=== PATIENT | male | born 1980 | race American Indian/Alaskan Native ===

== ENCOUNTER → 2022-02-15 | Emergency (ER) | payer MEDICAID, OTHER ==
[~2022-02-15] VITALS: Ht 157.5 cm; Wt 70.0 kg
[2022-02-15 07:23] VITALS: BP 135/80
[2022-02-15 08:00] LABS: Basophils # (auto) 0 10 ^3/uL (0-0.2); Basophils % (auto) 0.5 % (0.0-2.0); Eosinophils # (auto) 0 10 ^3/uL (0-0.8); Eosinophils % (auto) 0.1 % (0.0-7.0); Hematocrit 40.9 % (41.0-53.0); Hemoglobin 13.6 g/dL (13.5-17.5); Lymphocytes # (auto) 1.8 10 ^3/uL (0.4-5.4); Lymphocytes % (auto) 18.8 % (10.0-50.0); Mean Corpuscular Hemoglobin 23.8 pg (28.0-32.0); Mean Corpuscular Hgb Conc. 33.3 g/dL (32.0-36.0); Mean Corpuscular Volume 71.5 fL (80.0-100.0); Monocytes # (auto) 0.8 10 ^3/uL (0-1.3); Monocytes % (auto) 8.6 % (0.0-12.0); Neutrophils # (auto) 6.8 10 ^3/uL (1.6-8.6); Nucleated Red Blood Cells % 0.1 %; Red Blood Cells 5.72 10^6/uL (4.5-5.90); Red Cell Distribution Width 15.8 % (11.8-14.3); White Blood Cell 9.4 10^3/uL (4.4-10.8)
[2022-02-15 08:12] LABS: Albumin 4.3 g/dL (3.4-5.0); Calcium 8.6 mg/dL (8.5-10.1)
[2022-02-15 08:15] LABS: BUN/Creatinine Ratio 6.5; Bilirubin, Total 2.2 mg/dL (0.2-1.0); Total Protein 7.5 g/dL (6.4-8.2)
== END | disposition left against medical advice (07) ==
LOC: ER 07:04 → EDBD 07:04
DX: R07.9 Chest pain, unspecified (principal); Z53.21 Procedure and treatment not carried out due to patient leaving prior to being seen by health care provider
CPT/HCPCS: 36415; 80053; 84484; 85025

== ENCOUNTER 2022-10-21 08:16 | Day surgery (SDC) | payer MEDICAID ==
[2022-10-17 12:05] LABS: Eosinophils # (auto) 0.1 10 ^3/uL (0-0.8); Lymphocytes # (auto) 2.4 10 ^3/uL (0.4-5.4); Lymphocytes % (auto) 26.4 % (10.0-50.0); Monocytes # (auto) 1.3 10 ^3/uL (0-1.3); Nucleated Red Blood Cells % 0.2 %
[2022-10-17 12:06] LABS: Basophils # (auto) 0.1 10 ^3/uL (0-0.2); Basophils % (auto) 0.7 % (0.0-2.0); Hematocrit 44.2 % (41.0-53.0); Hemoglobin 14.7 g/dL (13.5-17.5); Mean Corpuscular Hgb Conc. 33.2 g/dL (32.0-36.0); Mean Corpuscular Volume 75.3 fL (80.0-100.0); Monocytes % (auto) 14.7 % (0.0-12.0); Neutrophils # (auto) 5.3 10 ^3/uL (1.6-8.6); Neutrophils % (auto) 57.2 % (37.0-80.0); Red Blood Cells 5.87 10^6/uL (4.5-5.90); White Blood Cell 9.2 10^3/uL (4.4-10.8)
[2022-10-17 12:24] LABS: INR 0.97 (0.9-1.15); Partial Thromboplastin Time 30.8 SEC (24.5-34.5)
[2022-10-17 12:47] LABS: Urine Bacteria NONE SEEN /hpf (None Seen); Urine Blood 1+ /uL (Negative); Urine Specific Gravity 1.028 (1.001-1.035); Urine WBC 1 /hpf (0 - 3)
[2022-10-17 12:56] LABS: Potassium 5.1 mmol/L (3.5-5.1)
[2022-10-17 13:03] LABS: Albumin 4.5 g/dL (3.4-5.0); BUN/Creatinine Ratio 20.2 (10.0-20.0); Bilirubin, Total 1.8 mg/dL (0.2-1.0); Calcium 8.8 mg/dL (8.5-10.1); Total Protein 8.2 g/dL (6.4-8.2)
[~2022-10-21] VITALS: Ht 160 cm; Wt 68.9 kg
[~2022-10-21 08:16] MED LIST: DIVA250T4 PO; ESCI10TA PO
[2022-10-21] MEDS ORDERED: ceFAZolin 1GM/50ML 100 ML IV ONE (08:29)
[2022-10-21] MEDS ORDERED: BUPIVACAINE HCL 50 ML ONE (08:30)
[2022-10-21] MEDS ORDERED: EPINEPHrine HCL 1 MG/1 ML AMP ONE ×2 (08:30→11:12)
[2022-10-21] MEDS ORDERED: BACITRACIN TOP OINT 1 UD PKG TOP ONE (08:30)
[2022-10-21] MEDS ORDERED: LIDOCAINE W/ EPINEPHRINE 2% INJ 20ML VIAL ONE (08:32)
[2022-10-21] MEDS ORDERED: DexAMETHasone SOD PHOS 4 MG/1ML SDV INJ ONE (08:32)
[2022-10-21] MEDS ORDERED: BUPIVACAINE 0.25% INJ 50ML VIAL ONE (08:32)
[2022-10-21] MEDS ORDERED: PROPOFOL 10 MG/ML 20 ML IV ONE (09:48)
[2022-10-21] MEDS ORDERED: KETOROLAC TROMETH 30 MG/ML 1ML VIAL ONE (09:48)
[2022-10-21] MEDS ORDERED: GLYCOPYRROLATE 0.2 MG/ML 1ML VIAL ONE ×2 (09:48→11:23)
[2022-10-21] MEDS ORDERED: ONDANSETRON HCL 4 MG/2 ML VIAL ONE (09:48)
[2022-10-21] MEDS ORDERED: DexAMETHasone SOD PHOS 10MG/1ML VIAL INJ ONE (09:48)
[2022-10-21] MEDS ORDERED: LIDOCAINE 2% (LOCAL ANESTH.) PF 5ml SDV ONE (09:48)
[2022-10-21] MEDS ORDERED: ROCURONIUM 10MG/ML 10ML VIAL IV ONE (09:48)
[2022-10-21] MEDS ORDERED: fentaNYL CITRATE 100 MCG/2 ML VL ONE (10:22)
[2022-10-21] MEDS ORDERED: SUGAMMADEX 200mg/2ml Vial (100MG/ML) IV ONE (10:22)
[2022-10-21] MEDS ORDERED: LIDOCAINE 1% INJ PF 5ML AMP ONE (10:54)
[2022-10-21] MEDS ORDERED: NEOSTIGMINE 1 MG/ML INJ (10mg/10ML VIAL) ONE (11:23)
[2022-10-21] MEDS ORDERED: NALOXONE HCL 0.4 MG/ML VIAL IV PRN (13:15)
[2022-10-21] MEDS ORDERED: LABETALOL HCL 5 MG/ML 4ML SYRINGE IV PRN (13:15)
[2022-10-21] MEDS ORDERED: ePHEDrine SULFATE 50 MG/ML AMP IV PRN (13:15)
[2022-10-21] MEDS ORDERED: fentaNYL CITRATE 100 MCG/2 ML VL IV PRN (13:15)
[2022-10-21] MEDS ORDERED: HYDROmorphone HCL 2 MG/ML VL/or syr IV PRN (13:15)
[2022-10-21] MEDS ORDERED: hydrALAZINE HCL 20 MG/ML VL IV PRN (13:15)
[2022-10-21] MEDS ORDERED: ONDANSETRON HCL 4 MG/2 ML VIAL IV PRN (13:15)
[2022-10-21] MEDS ORDERED: FLUMAZENIL 0.1 MG/ML INJ 10ML MDV IV PRN (13:15)
[2022-10-21 13:45] VITALS: BP 128/84
== END 2022-10-21 13:55 | disposition home or self-care (01) ==
LOC: SUR 08:16
PROVIDERS: ATTEND Orthopaedic Surgery
DX: S83.511A Sprain of anterior cruciate ligament of right knee, initial encounter (principal); S83.271A Complex tear of lateral meniscus, current injury, right knee, initial encounter; X58.XXXA Exposure to other specified factors, initial encounter; Y93.89 Activity, other specified; Y92.89 Other specified places as the place of occurrence of the external cause; Y99.8 Other external cause status; M23.003 Cystic meniscus, unspecified medial meniscus, right knee
CPT/HCPCS: 29881; 29888; 36415; 80053; 81001; 85025; 85610; 85730; 88305; C1713; C1762; J0171; J0690; J1100; J1885; J2001; J2405; J2704; J3490